=== PATIENT | female | born 1980 | race Caucasian/White ===

== ENCOUNTER 2023-03-28 19:33 | Outpatient (CLI) | payer MEDICAID, SELFPAY ==
--- NOTE | 2023-03-28 19:45 | MR_ITS ---
[address] [address] Phone:?[phone] Fax:?[phone] Referring Physician Information: Weston Gonzalez M.D. [id number] [facility] [address] Phone:?[phone] Fax:?[phone] Patient:Faustina Mackey D.O.B:?1980 Sex:?Female Phone:?[phone] [facility] MRN:?[id number] Exam Date:?03/28/2023 EXAM: MRI of the RIGHT KNEE, without contrast CLINICAL HISTORY: Right knee pain. Evaluate for meniscal tear. COMPARISONS: Plain radiographs 02/07/2023. TECHNICAL: MR sequences of the right knee: sagittals: PD, PDFS coronals: PD, T2FS axials: PD, PDFS CONTRAST: None SEDATION: None FINDINGS: Bones: No fracture or destructive osseous lesion. 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 Retinacula: The medial and lateral retinacula are intact. Fat pads: The infrapatellar, quadriceps, and prefemoral fat pads are unremarkable. Knee joint: Effusion: Moderate right knee joint effusion. Popliteal cyst: None. Intra-articular bodies: None. Posteromedial corner: The semimembranosus and pes anserine tendons are intact. Medial compartment: Medial meniscus: Full thickness radial tear through the posterior root of the medial meniscus with marked medial meniscal extrusion. Cartilage: Diffuse near full-thickness and full-thickness chondral loss over most of the weightbearing portion of the medial femoral condyle with associated central osteophytosis. Lateral compartment: Lateral meniscus: Intact. Cartilage: 8 x 8 mm area of near full-thickness chondral loss over the central portion of the lateral tibial plateau. Ligaments: Anterior cruciate ligament: Intact. Posterior cruciate ligament: Intact. Medial collateral ligament: Intact. Posterior oblique ligament: Intact. Fibular collateral ligament: Intact. Posterolateral corner: The distal biceps femoris tendon, iliotibial band, popliteus tendon, popliteus muscle, popliteofibular ligament, and arcuate ligament are intact. Extensor mechanism: Patellar tendon: Intact. Quadriceps tendon: Intact. IMPRESSION: 1. Full-thickness radial tear through the posterior root of the medial meniscus with marked medial meniscal extrusion. 2. 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 3. Diffuse near full-thickness and full-thickness chondral loss over most of the weightbearing portion of the medial femoral condyle with associated central osteophytosis. 4. 8 x 8 mm area of near full-thickness chondral loss over the central portion of the lateral tibial plateau. 5. Moderate right knee joint effusion. 6. No ligamentous injury or lateral meniscal tear of the right knee. RCB Electronically signed on 03/29/2023 7:45:00 AM by Amrit Schuster M.D.
== END 2023-03-28 19:34 | disposition home or self-care (01) ==
LOC: MRI 19:34
PROVIDERS: Visit Provider Orthopaedic Surgery
DX: M25.561 Pain in right knee (principal); S83.206A Unspecified tear of unspecified meniscus, current injury, right knee, initial encounter; S83.241A Other tear of medial meniscus, current injury, right knee, initial encounter; M22.41 Chondromalacia patellae, right knee; M25.461 Effusion, right knee
CPT/HCPCS: 73721

== ENCOUNTER 2023-05-02 08:18 | Outpatient (CLI) | payer MEDICAID, SELFPAY | END 2023-05-02 08:19 | disposition home or self-care (01) | PROVIDERS: PCP Nurse Practitioner Family; Visit Provider Nurse Practitioner Family | DX: Z00.00 Encounter for general adult medical examination without abnormal findings (principal); Z13.6 Encounter for screening for cardiovascular disorders; Z13.1 Encounter for screening for diabetes mellitus; Z13.29 Encounter for screening for other suspected endocrine disorder; Z13.0 Encounter for screening for diseases of the blood and blood-forming organs and certain disorders involving the immune mechanism | CPT/HCPCS: 80061; 82947; 84443; 85025 ==

== ENCOUNTER 2024-08-28 08:28 | Outpatient (CLI) | payer MEDICAID, SELFPAY | END 2024-08-28 08:29 | disposition home or self-care (01) | PROVIDERS: PCP Nurse Practitioner Family; Visit Provider Nurse Practitioner Family | DX: E66.9 Obesity, unspecified (principal); N92.6 Irregular menstruation, unspecified; Z13.0 Encounter for screening for diseases of the blood and blood-forming organs and certain disorders involving the immune mechanism; Z13.6 Encounter for screening for cardiovascular disorders; Z13.1 Encounter for screening for diabetes mellitus | CPT/HCPCS: 80061; 82947; 84439; 84443; 85025 ==

== ENCOUNTER 2024-10-08 08:39 | Outpatient (CLI) | payer MEDICAID, SELFPAY ==
--- NOTE | 2024-10-08 09:58 | W.ANESCHARGE ---
Anesthesia Charges Start Date/Time Anesthesia Start Date: 10/08/24 Anesthesia Start Time: 09:18 Stop Date/Time Anesthesia Stop Date: 10/08/24 Anesthesia Stop Time: 09:56
--- NOTE | 2024-10-08 10:58 | W.ANESCHARGE ---
Anesthesia Charges Start Date/Time Anesthesia Start Date: 10/08/24 Anesthesia Start Time: 09:18 Stop Date/Time Anesthesia Stop Date: 10/08/24 Anesthesia Stop Time: 09:56
== END 2024-10-08 08:40 | disposition home or self-care (01) ==
LOC: OP CLINIC 08:40
PROVIDERS: PCP Nurse Practitioner Family; Visit Provider Internal Medicine
DX: Z12.11 Encounter for screening for malignant neoplasm of colon (principal); D12.0 Benign neoplasm of cecum; D12.5 Benign neoplasm of sigmoid colon
CPT/HCPCS: 00811; 45380; 45385; 88305; J2704

== ENCOUNTER 2024-12-17 14:16 | Outpatient (CLI) | payer MEDICAID, SELFPAY ==
--- NOTE | 2024-12-17 14:30 | CRLHL7_ITS ---
For Patients: As a result of the Century Cures Act, medical imaging exams and procedure reports are released immediately into your electronic medical record. You may view this report before your referring provider. If you have questions, please contact your health care provider. INDICATION: Dizziness. COMPARISON: None. TECHNIQUE: Multiplanar T1, T2, FLAIR and diffusion-weighted imaging. Post gadolinium T1 weighted sequences. FINDINGS: Normal brain parenchymal morphology and signal intensity. No intracranial hemorrhage. No abnormal ventricular dilatation. Intracranial vascular flow voids are preserved. No mass effect. No midline shift. No restricted diffusion to suggest acute ischemia. No abnormal enhancement or enhancing lesions within the brain parenchyma. Dedicated sequence of the skullbase and IAC`s demonstrates normal course of cranial nerves 7 and 8 from the root entry zone to the fundus of the IAC`s. Normal fluid signal within the cochlea and vestibule. Normal root entry zone of the bilateral trigeminal nerves. No abnormal mass or enhancement within cerebellopontine angles or IAC`s. Bilateral orbits are unremarkable. Normal appearing sella. Visualized paranasal sinuses and mastoid air cells are unremarkable. IMPRESSION: 1. No acute intracranial abnormality. 2. Normal brain parenchymal morphology and signal intensity. 3. No abnormal enhancement or enhancing lesions 4. Dedicated sequences of the skull base and IAC`s demonstrates normal course of cranial nerves. No abnormal mass or enhancement. Dictated by Sergio Nova MD @ 12/18/2024 8:48:24 AM (Electronically Signed)
== END 2024-12-17 14:17 | disposition home or self-care (01) ==
LOC: MRI 14:17
PROVIDERS: PCP Nurse Practitioner Family; Visit Provider Otolaryngology
DX: R42 Dizziness and giddiness (principal)
CPT/HCPCS: 70553; A9575

== ENCOUNTER 2025-03-14 10:31 | Outpatient (CLI) | payer MEDICAID, SELFPAY | END 2025-03-14 10:32 | disposition home or self-care (01) | LOC: KYNREF 10:32 | PROVIDERS: PCP Nurse Practitioner Family; Visit Provider Nurse Practitioner Family | DX: R39.9 Unspecified symptoms and signs involving the genitourinary system (principal) | CPT/HCPCS: 81001; 87086 ==